=== PATIENT | female | born 1940 | race Caucasian/White ===

== ENCOUNTER 2017-03-05 09:14 | Emergency (ER) | payer MEDICARE, OTHER ==
[~2017-03-05 09:14] MED LIST: ALBUTEROL MDI INH; ASPIRIN EC81 MG PO; ASPIRIN325 M3 PO; ASPIRIN81 MG PO; BIOFLEX TABLET1 EAC1 PO; BIOFLEX TABLET1 EACH PO; CALCIUM 6001.5 G PO; CALCIUM CARBON600 M2 PO; CYMBALTA60 M1 PO; CYMBALTA60 MG PO; DARVOCET-N 1001 TAB PO; DOXYCYCLINE HYC20 MG PO; FLONASE16 GM; FLOVENT HFA1 PUFF INH; FLOVENT HFA12 GM PO; FLUTICASONE PRO16 G1; HALFPRIN162 MG; LASIX20 MG PO; LIPITOR40 M1 PO; LISINOPRIL10 M1 PO; LORATADINE10 M2 PO; METROLOTION59 ML TP; MINOCYCLINE HC100 M1 PO; MULTI-VITAMIN1 EAC1 PO; MULTI-VITAMIN1 EAC3 PO; NABUMETONE750 M1 PO; NABUMETONE750 MG PO; NITROSTAT0.4 MG/TAB SL; NORVASC5 M2 PO; OMEGA 3 1,0001 EAC1 PO; OMEGA 3 1,0001 EACH PO; OSTEO BI-FLEX1 EAC5 PO; PERCOCET 5MG/AP1 TA1 PO; POTASSIUM CHLO20 MEQ PO; PREDNISONE PO; RED YEAST RICE PO; RED YEAST RICE600 M1 PO; ROXICODONE5 M2 PO; SYNTHROID50 MC1 PO; SYNTHROID50 MCG PO; TYLENOL325 M2 PO; TYLENOL325 MG PO; ULTRAM50 M1 PO; ULTRAM50 MG PO; UNKNOWN ALLERGY MED; VENTOLIN HFA18 G2 INH; VITAMIN C PO; VITAMIN C500 M3 PO; VITAMIN D 22000 UNIT PO; VITAMIN D2000 UNI1 PO; VITAMIN D32000 UNI2 PO; XARELTO10 MG PO
[2017-03-05] MEDS ORDERED: NEURONTIN400 M1 PO (10:25)
[2017-03-05] MEDS ORDERED: NABUMETONE750 M1 PO (10:25)
[2017-03-05] MEDS ORDERED: METFORMIN HCL500 M2 PO (10:26)
[2017-03-05] MEDS ORDERED: ULTRAM50 M1 PO (11:18)
== END 2017-03-05 11:25 ==
LOC: EDMED 09:14
DX: S13.4XXA Sprain of ligaments of cervical spine, initial encounter (principal); S01.511A Laceration without foreign body of lip, initial encounter; S00.83XA Contusion of other part of head, initial encounter; S40.012A Contusion of left shoulder, initial encounter; S70.02XA Contusion of left hip, initial encounter; Z23 Encounter for immunization; I10 Essential (primary) hypertension; Z88.0 Allergy status to penicillin; W01.0XXA Fall on same level from slipping, tripping and stumbling without subsequent striking against object, initial encounter; Y92.009 Unspecified place in unspecified non-institutional (private) residence as the place of occurrence of the external cause
CPT/HCPCS: J1170